=== PATIENT | female | born 1990 | race Caucasian/White ===

== ENCOUNTER → 2021-05-25 14:19 | Outpatient (BNVA) | payer OTHER, SELFPAY | PROVIDERS: Visit Provider Nurse Practitioner Family | DX: F07.81 Postconcussional syndrome (principal); G43.009 Migraine without aura, not intractable, without status migrainosus; M25.561 Pain in right knee; R29.898 Other symptoms and signs involving the musculoskeletal system | CPT/HCPCS: 99212 ==